=== PATIENT | male | born 1945 | race Caucasian/White ===

== ENCOUNTER → 2023-09-23 10:55 | Outpatient (REF) | payer MEDICARE, OTHER, SELFPAY | LOC: RCS 10:55 | PROVIDERS: ATTENDING PHYSICIAN Internal Medicine; FAMILY PHYSICIAN Internal Medicine | DX: I44.7 Left bundle-branch block, unspecified (principal); I44.0 Atrioventricular block, first degree | CPT/HCPCS: 93225; 93226 ==

== ENCOUNTER → 2023-12-08 12:54 | Outpatient (REF) | payer MEDICARE, OTHER, SELFPAY | LOC: RAD 12:54 | PROVIDERS: ATTENDING PHYSICIAN Internal Medicine | DX: R07.9 Chest pain, unspecified (principal); R10.9 Unspecified abdominal pain | CPT/HCPCS: 71046; 72072; 72110 ==

== ENCOUNTER → 2024-03-08 11:29 | Outpatient (REF) | payer MEDICARE, OTHER, SELFPAY ==
[2024-03-08 12:43] LABS: % Basophils 1.1 % (0-2); % Eosinophils 4.5 % (0-6); % Immature Granulocytes 0.5 % (0-0.5); % Lymphocytes 26.8 % (20.5-51.1); % Monocytes 7.1 % (1.7-9.3); Absolute Basophils 0.1 10^3/uL (0-0.2); Absolute Eosinophils 0.4 10^3/uL (0-0.7); Absolute Lymphocytes 2.2 10^3/uL (1.2-3.4); Absolute Monocytes 0.6 10^3/uL (0.1-0.6); Mean Corp Hgb Conc. 34.9 g/dL (33.0-37.0); Mean Corpuscular Hgb 31.3 pg (27.0-31.0); Mean Corpuscular Volume 89.8 fL (80.0-94.0); Mean Platelet Volume 9.5 fL (7.4-10.4); Nucleated Red Blood Cells % 0 % (-); Platelet Count 207 10^3/uL (130-400); Red Blood Cell Count 4.79 10^6/uL (4.70-6.10); Red Cell Dist. Width 13.7 % (11.5-14.5); White Blood Cell Count 8.3 10^3/uL (4.8-10.8)
[2024-03-08 13:13] LABS: ALT (SGPT) 27 U/L (0-50); AST (SGOT) 29 U/L (17-59); Albumin 4.7 g/dl (3.5-5.0); Alkaline Phosphatase 74 U/L (38-126); Blood Urea Nitrogen 19 mg/dl (9-20); Calcium 10.1 mg/dl (8.4-10.2); Carbon Dioxide 27 mmol/L (22-30); Chloride 103 mmol/L (98-107); Glucose 90 mg/dl (70-99); HDL Cholesterol 47 mg/dl; LDL Cholesterol, Calculated 88 mg/dl; Sodium 138 mmol/L (135-145); Total Bilirubin 0.6 mg/dl (0.2-1.3); Total Cholesterol 184 mg/dl (50-199); Triglyceride 246 mg/dl (10-149); Very Low Density Lipoprotein 49 mg/dl (0-30); eGFR > 60.00
[2024-03-08 13:36] LABS: Urine Albumin Negative (Neg - Trace); Urine Bilirubin Negative (Negative); Urine Character Clear (Clear); Urine Color Yellow; Urine Glucose Negative (Negative); Urine Ketone Negative (Negative); Urine Leukocyte Negative (Negative); Urine Nitrite Negative (Negative); Urine Occult Blood Negative (Negative); Urine Urobilinogen Negative (Neg - 1+)
== END ==
LOC: REG 11:29
PROVIDERS: ATTENDING PHYSICIAN Internal Medicine; OTHER PHYSICIAN Specialist; REFERRING PHYSICIAN Surgery
DX: I10 Essential (primary) hypertension (principal); E78.5 Hyperlipidemia, unspecified
CPT/HCPCS: 36415; 80053; 80061; 81003; 85025

== ENCOUNTER → 2024-03-22 12:56 | Outpatient (REF) | payer MEDICARE, OTHER, SELFPAY | LOC: RAD 12:56 | PROVIDERS: ATTENDING PHYSICIAN Surgery; FAMILY PHYSICIAN Internal Medicine; REFERRING PHYSICIAN Internal Medicine Critical Care Medicine | DX: R91.1 Solitary pulmonary nodule (principal); D30.01 Benign neoplasm of right kidney | CPT/HCPCS: 71250; 76775 ==

== ENCOUNTER 2024-04-24 09:14 | Outpatient (REF) | payer MEDICARE, OTHER, SELFPAY ==
[2024-04-24] VITALS (8 sets, daily range): BP systolic 48–175; BP diastolic 64–90
[2024-04-24 10:02] LABS: % Basophils 0.9 % (0-2); % Eosinophils 3.3 % (0-6); % Immature Granulocytes 0.3 % (0-0.5); % Lymphocytes 18.7 % (20.5-51.1); % Monocytes 6.7 % (1.7-9.3); % Neutrophils 70.1 % (42.2-75.2); Absolute Basophils 0.1 10^3/uL (0-0.2); Absolute Eosinophils 0.3 10^3/uL (0-0.7); Absolute Lymphocytes 1.7 10^3/uL (1.2-3.4); Absolute Monocytes 0.6 10^3/uL (0.1-0.6); Absolute Neutrophils 6.4 10^3/uL (1.4-6.5); Hematocrit 41.8 % (39.0-52.0); Mean Corp Hgb Conc. 35.9 g/dL (33.0-37.0); Mean Corpuscular Hgb 32.2 pg (27.0-31.0); Mean Corpuscular Volume 89.7 fL (80.0-94.0); Mean Platelet Volume 10.2 fL (7.4-10.4); Nucleated Red Blood Cells % 0 % (-); Platelet Count 252 10^3/uL (130-400); Red Blood Cell Count 4.66 10^6/uL (4.70-6.10); Red Cell Dist. Width 14.2 % (11.5-14.5); White Blood Cell Count 9.2 10^3/uL (4.8-10.8)
[2024-04-24 10:45] LABS: INR 1.01; PT 13.1 Sec (11.4-14.6)
== END 2024-04-24 14:20 | disposition home or self-care (01) ==
LOC: RADI 09:14
PROVIDERS: ATTENDING PHYSICIAN Internal Medicine Critical Care Medicine; FAMILY PHYSICIAN Internal Medicine
DX: C34.2 Malignant neoplasm of middle lobe, bronchus or lung (principal); Z87.891 Personal history of nicotine dependence; Z79.01 Long term (current) use of anticoagulants
CPT/HCPCS: 88305; 32408; 36415; 71045; 81459; 85025; 85610; 88333; 88341; 88342; 99152; 99153

== ENCOUNTER 2024-05-30 05:09 | Inpatient (IN) | payer MEDICARE, OTHER, SELFPAY ==
[2024-05-22 13:18] LABS: % Basophils 0.5 % (0-2); % Eosinophils 3.1 % (0-6); % Immature Granulocytes 0.3 % (0-0.5); % Lymphocytes 18.7 % (20.5-51.1); % Monocytes 5.5 % (1.7-9.3); % Neutrophils 71.9 % (42.2-75.2); Absolute Basophils 0.1 10^3/uL (0-0.2); Absolute Eosinophils 0.3 10^3/uL (0-0.7); Absolute Lymphocytes 1.8 10^3/uL (1.2-3.4); Absolute Monocytes 0.5 10^3/uL (0.1-0.6); Absolute Neutrophils 6.9 10^3/uL (1.4-6.5); Hematocrit 40.6 % (39.0-52.0); Hemoglobin 14.2 g/dL (13.0-18.0); Mean Corpuscular Volume 88.6 fL (80.0-94.0); Mean Platelet Volume 9.4 fL (7.4-10.4); Nucleated Red Blood Cells % 0 % (-); Platelet Count 221 10^3/uL (130-400); Red Blood Cell Count 4.58 10^6/uL (4.70-6.10); Red Cell Dist. Width 13.7 % (11.5-14.5); Urine Albumin Trace (Neg - Trace); Urine Bilirubin Negative (Negative); Urine Character Clear (Clear); Urine Color Yellow; Urine Glucose Negative (Negative); Urine Ketone Negative (Negative); Urine Leukocyte Trace (Negative); Urine Nitrite Negative (Negative); Urine Occult Blood Negative (Negative); Urine Specific Gravity 1.015 (<1.030); Urine Urobilinogen Negative (Neg - 1+); White Blood Cell Count 9.6 10^3/uL (4.8-10.8)
[2024-05-22 13:27] LABS: INR 0.94; PT 12.3 Sec (11.4-14.6)
[2024-05-22 13:28] LABS: APTT 32.7 Sec (23.4-35.0)
[2024-05-22 13:31] LABS: ALT (SGPT) 24 U/L (0-50); AST (SGOT) 24 U/L (17-59); Albumin 4.4 g/dl (3.5-5.0); Alkaline Phosphatase 57 U/L (38-126); Blood Urea Nitrogen 21 mg/dl (9-20); Carbon Dioxide 25 mmol/L (22-30); Chloride 100 mmol/L (98-107); Direct Bilirubin 0.1 mg/dl (0.0-0.4); Glucose 114 mg/dl (70-99); Sodium 138 mmol/L (135-145); Total Bilirubin 0.4 mg/dl (0.2-1.3); Total Protein 6.8 g/dl (6.3-8.2); eGFR > 60.00
[2024-05-22 13:48] VITALS: BMI 30.3
--- NOTE | 2024-05-22 13:48 | CM ---
Chart reviewed. Met with the patient and his significant other in PAT. Patient is independent of ADLS, lives with significant other in a split level home, 0 BRANDI, 0 DME. Reviewed preoperative and postoperative instructions with restrictions.
Gave patient 2 soaps, along with showering instruction. Patient is agreeable to a home visit by CT Transitional RN. Plan is for the patient to return home with CT Transitional RN.
[2024-05-22 14:19] LABS: Urine Red Blood Cell 0-2 /HPF (0-2)
[2024-05-23 09:27] LABS: Glycohemoglobin (HgbA1c) 5.8 % (4.0-5.6)
[2024-05-30] VITALS (23 sets, daily range): BP systolic 134–178; BP diastolic 69–105; BMI 28.7
--- NOTE | 2024-05-30 06:07 | PTCARENOTE ---
Pt admitted to room 2260. Pt confirmed 2 CHG showers at home and NPO status since midnight. Pt changed in gown. Weight and VS obtained. Pt clipped and prepped then wiped with CHG wipes. Admission questions answered. Home medications completed. ABO
drawn and sent. Pt oriented to room. Questions encouraged and answered. IS ~2000. Family brought to bedside. Call saldivar within reach.
--- NOTE | 2024-05-30 06:30 | W.CVOR.SURPR ---
CVOR Surgeon Immed Pre Op
-
I have examined this patient prior to performance of the scheduled procedure.
The patient's condition is unchanged from the time of the dictated/written History and
Physical and the patient is able to undergo the scheduled procedure.
RATS RML + LN Dissection
--- NOTE | 2024-05-30 06:46 | PTCARENOTE ---
Pt took vitamin D3, vitamin B, and a multivitamin on 05/29. Pt also took fish oil supplement on 05/27. MORGAN pelaez.
[2024-05-30 07:29] LABS: Urine Albumin Negative (Neg - Trace); Urine Bilirubin Negative (Negative); Urine Character Clear (Clear); Urine Color Yellow; Urine Glucose Negative (Negative); Urine Ketone Negative (Negative); Urine Leukocyte Negative (Negative); Urine Nitrite Negative (Negative); Urine Occult Blood Negative (Negative); Urine Specific Gravity 1.015 (<1.030); Urine Urobilinogen Negative (Neg - 1+); Urine pH 6.5 (5.0-9.0)
--- NOTE | 2024-05-30 11:07 | W.PN.CT.SURG ---
CT Surgery Operative Note
-
THORACIC SURGERY OPERATIVE REPORT
Preoperative Diagnosis: Adenocarcinoma of the right middle lobe
Postoperative Diagnosis: Same
Procedure(s) Performed:
1. Robotic assisted thoracic surgery
2. Right middle lobectomy
3. Wedge resection of adherent right upper lobe
4. Radical lymph node dissection
5. Intercostal nerve block interspaces 4 through 8 with bupivicaine mixture
Date of Surgery: 05/30/24
Comorbidities:
1. Adenocarcinoma of the right middle lobe
2. Hyperlipidemia
3. Hypertension
4. Mild mitral valve insufficiency
5. Tobacco abuse, recently quit
6. Paroxysmal atrial fibrillation
7. Hiatal hernia
Attending Surgeon: Bharathi Irene MD, MS
Assistants: Bharathi Rooney PA-C (present and necessary to transport assistant, exchanging robotic instruments, retraction, suction, exposure, suture management, and wound closure under my direction)
Anesthesiology: Darrel Huertas MD and Jaren Swift CRNA
Scrub and Circulating RNs: Jamila Correa RN, Nicola Soliz RN
Anesthesia: Dual Lumen GETA
EBL: 100 cc
Products: None
Indication(s) for Procedures: This is a 78-year-old male who has a significant history for tobacco abuse and recently found to have a right lower lobe mass that has been slowly growing serial imaging studies. It also had some PET avidity on CT
imaging. He underwent a recent biopsy that came back positive for adenocarcinoma. Given the size of the mass and that his PET/CT was not concerning for mediastinal adenopathy or uptake, he was offered surgical resection in the form of a right
middle lobectomy plus lymph node sampling. His PFTs were acceptable for lobectomy.
Findings: Upon entry into his chest, his intrathoracic cavity was surveyed for any obvious metachronous disease. None was discovered. I was able to identify the right middle lobe lesion which was posterior towards the hilum and was found to be
adherent to the right upper lobe. The lung was mobilized accordingly and lymph nodes were harvested. He did have a paucity of lymph nodes. Given that the lesion was adherent to the lateral edge of the right upper lobe, I elected to perform a
wedge resection leaving the right upper lobe attached to the lesion as part of the right middle lobe specimen. At the conclusion the case he had a very minimal intermittent airleak with no significant loss of tidal volume.
Specimen(s):
Station 9, x 1 nodes
Station 11, x 2 nodes
Station 4, x 1 nodes
Station 2, x 1 nodes
Station 7, x 1 nodes
Right middle lobe
Wedge marked with blue ink of the Right upper lobe (left attached to the RML lesion)
Description of Procedure: The patient was taken to the operating room. Induction via general anesthesia with endotracheal intubation was performed and peripheral venous access and arterial monitoring were inserted. Their identity and procedure to be
performed were verified and they were positioned with the right side up on the operating table. The patient was then prepped and draped in a sterile fashion. A preoperative time-out was performed with all members of the team present. A Veress
needle was used to insufflate the chest after isolating the lung. An 8 mm port was placed in the midaxillary line at approximately the eighth intercostal space and confirmed to be intrathoracic without significant pulmonary injury. The chest was
surveyed for any evidence of metastatic disease. Patient tolerate insufflation without complication. 2 additional 12 mm trocars were placed on either side under camera guidance and a third 8 mm trocar was placed along the back. A 12 mm nurseryman assistant
port was placed in the 11th intercostal space above the insertion of the diaphragm. An intercostal nerve block was performed at intercostal spaces 4 through 8.
The thoracic cavity was inspected for evidence of metastatic disease. None was observed. We started with mobilization of the inferior pulmonary ligament. We worked our way clockwise dissecting out the hilum and harvest any lymph nodes identified.
The pulmonary arteries and veins leading to the right middle lobe were identified and skeletonized after dividing lung parenchyma at the fissures which were moderately developed. I isolated the pulmonary veins draining the right middle lobe and
divided them with a white load stapler. After developing the fissures, the pulmonary artery branch and bronchus leading to the RML were essentially skeletonized and the only remaining structures, a green load stapler was used to divided both of
these. The specimen was displaced toward the apex while a chest tube was inserted and placed laterally towards the apex. A X-large anchor bag was inserted through the airseal port and the specimen was extracted from the chest cavity. Coseal was
used to reinforce the staple lines and hilum. Fibrillar was inserted at each port site. After confirming hemostasis, the lung was fully inflated under visualization and all ports were removed. Incisions were closed in 3 layers including the
fascia, dermal, and epidermis. Additional local anesthesia was injected into all incision sites. The skin wound was cleansed and sealed with Dermabond glue.
All instrument, sponge, and needle counts were confirmed to be correct x 2 at the end of the operation. The patient was transferred to the cardiac intensive care unit extubated in critical but stable condition.
I, Dr. Bharathi Irene, was present, scrubbed for, and performed all critical elements of this procedure.
Bharathi Irene MD, MS
Cardiothoracic Surgeon
[facility]
This operative dictation was created using the [employer] dictation system. Please excuse any grammatical, typographical, or 'sound alike' errors
--- NOTE | 2024-05-30 11:19 | CM ---
Chart reviewed. Patient is in the OR today. Patient is independent of ADLS, lives with his significant other in a split level, 0 BRANDI, 0 DME. Plan is for the patient to return home with CT Transitional RN. CM to follow
[2024-05-30] MEDS: DILAUDID 0.25 MG IV (11:20)
--- NOTE | 2024-05-30 12:30 | PTCARENOTE ---
Received patient from PACU. Pt drowsy, but oriented x4. Pt rates right sided chest/back pain 3/10 stabbing. Denies nausea and shortness of breath. CURRIE with equal strength throughout. SB with 1st degree AVB on tele with rates in the 50s. Hypertensive
BP 171/84, CT PA aware. Bilateral radial and DP pulses palpable. No edema noted. POX 98% on 4L NC, titrated to 2L NC 94%. Left lung clear, right lung diminished throughout. IS completed 2000mL achieved. Nonproductive moist cough noted. Right pleural
chest tube to -20cm suction draining serosanguineous drainage. No air leaks, tidaling, crepitus noted. Abdomen soft, round, nontender. Hypoactive BS. Due to void post roca removal. Right lateral chest/back with 4 small incisions closed with skin
glue and approximated. Right radial heather intact with appropriate waveform. Left hand and forearm PIVs intact. See MAR for medication administration. See worklist for complete nursing assessment. Plan of care reviewed and patient in agreement.
[2024-05-30] MEDS: SENOKOT 8.6 MG PO (12:42)
[2024-05-30] MEDS: CRESTOR 20 MG PO (12:42)
[2024-05-30] MEDS: FEOSOL 325 MG PO (12:42)
[2024-05-30] MEDS: VITAMIN D3 (cholecalciferol) 25 MCG PO (12:42)
[2024-05-30] MEDS: NEURONTIN 100 MG PO ×3 (12:42→21:35)
[2024-05-30] MEDS: ANCEF 10 IV ×2 (12:42)
--- NOTE | 2024-05-30 12:47 | CON.INTV ---
Consultation
Consultation Request
Date/Time Consultation Requested: 05/30/2024
Date/Time Consultation Performed: 05/30/2024
Requesting Provider: Dr. Irene
Performing Provider: Dr. Jadiel Landa
Reason for Consultation: Status post robotic assisted right middle lobe lobectomy
Medical History
Past Medical History
Past Medical History: Other (See assessment and pln)
Past Surgical History: Other (See assessment and plan)
Social History
Tobacco: Smoker (60+ pack year history of smoking.)
Alcohol: None
Drug: None
Personal:
Living: With Family
Family History
Family History: Reviewed & Not Pertinent
Allergies / Home Medications
Allergies
Allergy/AdvReac Type Severity Reaction Status Date / Time
hydralazine Allergy Itching Verified 05/21/24 09:41
poison solis extract Allergy Itching Verified 05/21/24 10:22
Home Medications
�Medication �Instructions �Recorded �Confirmed �Last Taken �Type
diltiazem HCl 180 mg capsule,24 180 mg PO BID 04/20/24 05/30/24 05/29/24 08:00 History
hr,extended release
doxazosin 2 mg tablet 2 mg PO DAILY 04/20/24 05/30/24 05/29/24 08:00 History
multivitamin 1 tab PO DAILY 04/20/24 05/30/24 05/29/24 08:00 History
nebivolol 5 mg tablet 5 mg PO DAILY 04/20/24 05/30/24 05/29/24 20:00 History
rosuvastatin 20 mg tablet 20 mg PO DAILY 04/20/24 05/30/24 05/29/24 08:00 History
triamterene 37.5 1 cap PO DAILY 04/20/24 05/30/24 05/29/24 08:00 History
mg-hydrochlorothiazide 25 mg
capsule
aspirin 325 mg tablet 162 mg PO DAILY 05/21/24 05/30/24 05/27/24 History
cholecalciferol (vitamin D3) 25 25 mcg PO DAILY 05/21/24 05/30/24 05/28/24 20:00 History
mcg (1,000 unit) tablet (Vitamin
D3)
docosahexaenoic acid (dha)-epa 120 1 cap PO DAILY 05/21/24 05/30/24 05/27/24 History
mg-180 mg capsule (Fish Oil)
ferrous sulfate 325 mg (65 mg 325 mg PO DAILY 05/21/24 05/30/24 05/29/24 20:00 History
iron) tablet (Iron (ferrous
sulfate))
psyllium 500 mg capsule 0.52 g PO DAILY 05/21/24 05/30/24 05/29/24 08:00 History
tadalafil 5 mg tablet 1 mg PO DAILY 05/21/24 05/30/24 05/29/24 08:00 History
vitamin B complex 1 tab PO DAILY 05/21/24 05/30/24 05/29/24 08:00 History
zinc 100 mg tablet 150 mg PO QMWFSU 05/21/24 05/30/24 05/28/24 20:00 History
Review of Systems
-
History Source: Patient
All other systems: Negative unless noted
Vitals / Labs / Diagnostic Testing
Vital Signs
Temp Pulse Resp BP Pulse Ox
97.6 F 62 15 160/82 98
05/30/24 12:15 05/30/24 12:15 05/30/24 12:15 05/30/24 12:15 05/30/24 12:15
Lab Data
05/22/24 12:28
05/22/24 12:28
Diagnostic Testing:
Physical Exam
-
HEENT: Normocephalic
Cardiovascular: S1/S2
Respiratory: Non-Labored Respirations and Other (Chest tube in place without air leak)
GI: Soft and Non Distended
Neurology: Awake, Alert, Oriented and AO x 3
Skin: Warm
General: Comfortable
Assessment
-
Status post robotic assisted right middle lobectomy/wedge resection of adherent right upper lobe/radical lymph node dissection 05/30/2024
Adenocarcinoma right middle lobe percutaneous biopsy 04/24/2024
Conditions present prior admission:
Early stage adenocarcinoma 14 mm
Hypertension
Paroxysmal atrial fibrillation
Hiatal hernia
Hypercholesterolemia
Tobacco abuse-normal pulmonary function testing
Plan recommendation:
Doing well postoperative day 0
Chest x-ray without pneumothorax
Chest tube in place without air leak
Daily chest x-ray
-
Continue analgesia-monitor respiratory status closely.
Incentive spirometry as able
Follow final pathology of lymph node resection
-
Advance diet as tolerated
Follow H&H
Daily chest x-ray
-
Patient has history of smoking ongoing up until recently. Pulmonary function testing functional capacity was adequate. Not on inhalers.
-
Restart outpatient medications
Narcotics for pain-monitor respiratory status closely
-
DVT prophylaxis with SCDs for now. Eventual from ecological DVT prophylaxis depending on clinical progression.
-
Will follow
[2024-05-30] MEDS: ROXICODONE 2.5 MG PO (12:56)
[2024-05-30] MEDS: FLEXERIL 5 MG PO (12:56)
[2024-05-30] MEDS: ANCEF 5 IV ×2 (14:06→21:34)
[2024-05-30] MEDS: TYLENOL 1000 MG PO ×2 (14:06→21:34)
[2024-05-30] MEDS: HEPARIN 5000 UNITS SC ×2 (16:54→23:14)
--- NOTE | 2024-05-30 17:00 | PTCARENOTE ---
Pt reassessed. Pt a&ox4. Pt denies pain when not moving. SR with 1st degree AVB and LBBB with rates in the 60s. BP 172/89, CT PA aware. CT output WNL, to water seal, no air leak, tidaling, or crepitus. Pt voided 325ml zak urine. Surgical sites
stable. PIVx2 intact. Pt assisted OOB to the chair and tolerated. Pt's significant other at bedside.
[2024-05-30] MEDS: NICORETTE 2 MG PO (17:16)
[2024-05-30] MEDS: CARDIZEM CD 180 MG PO (18:03)
[2024-05-30] MEDS: SENOKOT PO (19:38)
--- NOTE | 2024-05-30 20:00 | PTCARENOTE ---
Received pt from [facility]. pt resting comfortably in chair, at bedside, pt AAOx4, pain 08/03. SB on monitor, VSS. heart sounds audible radial and DP pulses palpable, no edema noted. lung sounds diminished in b/l bases, spo2 96% on RA, x1 right
lateral pleural CT to water seal. hypoactive BS x4 quadrants, abdomen round/obese, firm, non tender, passing gas. pt voiding dark yellow urine. surgical site maintained. PIV maintained. pt assisted back to bed. call saldivar within reach. will continue
to monitor.
--- NOTE | 2024-05-31 | PTCARENOTE ---
pt assessment unchanged. VSS. SB on monitor. VSS. call saldivar within reach. will continue to monitor.
[2024-05-31 00:19] VITALS: BP 126/62
--- NOTE | 2024-05-31 04:00 | PTCARENOTE ---
Pt assessment unchanged. SB on monitor. VSS. labs drawn and sent.
[2024-05-31 04:10] VITALS: BP 99/69
[2024-05-31 04:16] LABS: Hematocrit 39.1 % (39.0-52.0); Hemoglobin 13.8 g/dL (13.0-18.0); Mean Corp Hgb Conc. 35.3 g/dL (33.0-37.0); Mean Corpuscular Hgb 32.6 pg (27.0-31.0); Mean Corpuscular Volume 92.4 fL (80.0-94.0); Mean Platelet Volume 9.1 fL (7.4-10.4); Platelet Count 194 10^3/uL (130-400); Red Blood Cell Count 4.23 10^6/uL (4.70-6.10); Red Cell Dist. Width 13.8 % (11.5-14.5); White Blood Cell Count 16.8 10^3/uL (4.8-10.8)
[2024-05-31 04:39] LABS: Blood Urea Nitrogen 24 mg/dl (9-20); Calcium 8.8 mg/dl (8.4-10.2); Carbon Dioxide 26 mmol/L (22-30); Chloride 100 mmol/L (98-107); Estimated Creatinine Clearance 53 ml/min; Glucose 132 mg/dl (70-99); Sodium 137 mmol/L (135-145); eGFR > 60.00
[2024-05-31] MEDS: ANCEF 5 IV (05:59)
[2024-05-31] MEDS: TYLENOL 1000 MG PO (05:59)
[2024-05-31 06:00] VITALS: BMI 29.4
--- NOTE | 2024-05-31 06:51 | W.PN.CT ---
Today's Communication / Plan
-
-pod #1
-no issues overnight
-postop CXR with questionable tiny pneumothorax at the lower right lateral chest margin. No apical pneumothorax- follow
-R CT on water seal, no air leak, output 30/115 in 12/24 hrs
-follow CXR (no ptx or subq emphysema on my review)
Assessment / Plan
-
- Adenocarcinoma of the right middle lobe- s/p RATS with R middle lobectomy, Wedge resection of adherent right upper lobe, Radical lymph node dissection by Dr. Irene on 05/30/24, pod #1
- Hyperlipidemia
- Hypertension
- Mild mitral valve insufficiency
- Tobacco abuse, recently quit
- Paroxysmal atrial fibrillation
- Hiatal hernia
Discussed patient care with: Nursing and Care Team
Subjective
-
Date of Service: May 31, 2024
Objective Data
-
PT 12.3 Sec (11.4-14.6) 05/22/24 12:28
INR 0.94 05/22/24 12:28
APTT 32.7 Sec (23.4-35.0) 05/22/24 12:28
Vital Signs
Vital Signs
Temp Pulse Resp BP Pulse Ox
97.9 F 56 15 126/62 94
05/31/24 00:00 05/31/24 00:19 05/30/24 17:01 05/31/24 00:19 05/31/24 00:19
CT Intake/Output/Weight
05/30/24 05/30/24 05/31/24
06:59 18:59 06:59
Intake Total 270 / 270
Output Total 410 / 420 10 / 420
Balance -140 / -150 -10 / -150
SaO2: 94
Physical Exam
-
General: Awake and AOx3
Cardiovascular: Regular rate & rhythm, No Murmurs and No Rub
Respiratory: Rales (at R. No wheeze b/l. No crepitus) and Decreased Breath Sounds
Incision: Clean, Dry and Intact
Extremities: No Edema
Data Reviewed
-
Lab Results: Results Reviewed
Medications: Active Meds Reviewed
Chest X-Ray: Report Reviewed and Image Reviewed
ECG: Report Reviewed and Image Reviewed
--- NOTE | 2024-05-31 07:00 | PTCARENOTE ---
Bedside walking rounds report received. Patient seen on rounds resting in chair on room air. NSR with BBB PAC PVC on monitor. Oriented x 3. Denies significant pain at this time. CT surgical rounds: New orders. PA will dc right pleural chest tube.
CXR at 12pm. Then dc home this afternoon if stable. IS encouraged hourly.
[2024-05-31 07:48] VITALS: BP 130/61
[2024-05-31 07:49] VITALS: BP 130/61
--- NOTE | 2024-05-31 07:53 | W.PN.ANS.POP ---
Anesthesia Post Operative
- Anesthesia Post Op Note
Vital Signs Stable-See Nursing Note: Yes
Airway Patent: Yes
Adequate Pain Control: Yes
Change in Mental Status: No
Current Postoperative Nausea & Vomiting: No
Anesthesia Complications: No
General Anesthetic Recall: No
Unplanned Admission: No
Post Op Hydration Adequate: Yes
- -
Pt awake and alert, OOB to chair with no anesthesia related c/o at time of post op visit.
[2024-05-31] MEDS: SENOKOT 8.6 MG PO (08:59)
[2024-05-31] MEDS: LIDOCAINE 4% PATCH 1 PATCH TOPICAL (09:00)
[2024-05-31] MEDS: HEPARIN 5000 UNITS SC (09:00)
[2024-05-31] MEDS: CRESTOR 20 MG PO (09:02)
[2024-05-31] MEDS: NEURONTIN 100 MG PO (09:03)
[2024-05-31] MEDS: DYAZIDE 1 CAPSULE PO (09:03)
[2024-05-31] MEDS: CARDIZEM CD 180 MG PO (09:04)
[2024-05-31] MEDS: FEOSOL 325 MG PO (09:04)
[2024-05-31] MEDS: VITAMIN D3 (cholecalciferol) 25 MCG PO (09:04)
--- NOTE | 2024-05-31 09:06 | W.DCSUMMARY ---
Discharge Summary
Discharge Data
Date of Admission: 05/30/24
Date of Discharge: 05/31/24
-
Pending Results: No
Hospital Course
Primary care physician:
Kyler
Outpatient bellman driver:
Maritza
Inpatient consultants:
Pulmonary
Procedures:
1. Right middle lobectomy and Wedge resection of adherent right upper lobe
Primary Diagnosis:
1. Adenocarcinoma of the right middle lobe
Secondary Diagnoses:
1. Hyperlipidemia
2. Hypertension
3. Mild mitral valve insufficiency
4. Tobacco abuse, recently quit
5. Paroxysmal atrial fibrillation
6. Hiatal hernia
HPI: 78-year-old male who has a significant history for tobacco abuse and recently found to have a right lower lobe mass that has been slowly growing serial imaging studies was evaluated for surgical intervention and he presented electively on 05/[address] Irene.
Hospital course:
Patient postprocedure was extubated in the OR and sent to PACU for the remainder of his recovery. Afterwards he was transferred to the CVICU. There was a small airleak postprocedure which resolved and later was transition to waterseal. On 05/31
postoperative day 1, morning chest x-ray did not show a pneumothorax and physical examination did not show an air leak in the Pleur-evac. Therefore the chest tube was removed and post removal chest x-ray was stable. He was discharged home with his
prescriptions.
Home medication changes:
See below
Discharge Plan
-
Patient Disposition: Home (Routine Discharge)
Discharge Diagnosis/Procedures: Right middle lobectomy and Wedge resection of adherent right upper lobe
Condition: Good
Diet: Low Cholesterol
Activity: No strenuous activity
Driving Restrictions: No driving for 2 weeks
Bathing Restrictions: OK to Shower
Others Tests: CXR prior to office visit with Dr. Irene
Activity Restrictions/Additional Instructions:
ACTIVITY:
-No strenuous activity
-continue to use stairs as tolerated
DRIVING RESTRICTIONS:
-No driving while on narcotics
WOUND CARE:
-Shower daily. Use soap & water.
-No lotions, creams or powders on incision area.
DIET:
-continue a low fat/low cholesterol diet.
-IF you are diabetic, continue carb controlled diet.
SPECIALTY INSTRUCTIONS:
-Weigh yourself daily. Call your physician for any weight gain/loss of 3 lbs overnight or 5 lbs in one week.
-REPORT any clicking noise or uneven appearance of your sternum to your surgeon immediately.
-If you smoke, you are instructed to quit. The [place] smoking hotline phone number is [phone]
Referrals:
CT Transitional Care Nurse [Outside] (The Cardiothoracic Transitional Care Nurse will call you to set up a visit in 1-2 days.)
Bharathi Irene MD [Active] - 07/04/24 1:45 pm
Solomon Chávez MD [Family Provider] -
Prescriptions:
New
cyclobenzaprine 10 mg Tablet
5 mg PO Q8HPRN PRN (Reason: muscle spasm) Qty: 30 0RF
acetaminophen 325 mg Tablet
650 mg PO Q4HPRN PRN (Reason: mild pain,headache,temp >101F ) Qty: 0 0RF
gabapentin 100 mg Capsule
100 mg PO TID Qty: 60 0RF
oxycodone 5 mg Tablet
2.5 mg PO Q8HPRN PRN (Reason: severe pain) Qty: 8 0RF
Continued
multivitamin Tablet
1 tab PO DAILY
diltiazem HCl 180 mg Capsule,Extended Release 24 Hr
180 mg PO BID
triamterene-hydrochlorothiazid 37.5-25 mg Capsule
1 cap PO DAILY
doxazosin 2 mg Tablet
2 mg PO DAILY
rosuvastatin 20 mg Tablet
20 mg PO DAILY
nebivolol 5 mg Tablet
5 mg PO HS
aspirin 325 mg Tablet
162 mg PO DAILY
tadalafil 5 mg Tablet
1 mg PO DAILY
zinc 100 mg Tablet
150 mg PO QMWFSU
psyllium 500 mg Capsule
0.52 g PO DAILY
ferrous sulfate [Iron (ferrous sulfate)] 325 mg (65 mg iron) Tablet
325 mg PO DAILY
vitamin B complex Tablet
1 tab PO DAILY
cholecalciferol (vitamin D3) [Vitamin D3] 25 mcg (1,000 unit) Tablet
25 mcg PO DAILY
Held
Fish Oil 120-180 mg Capsule
1 cap PO DAILY
Hold Instructions: Resume on 06/07/24.
Discharge Orders:
Discharge Patient (As Directed); Ordered 05/31/24
Ordered By: Jamila Mortensen
Care Plan Goals
Care Plan Goals:
Problem: Readiness for enhanced knowledge related to diagnosis and treatment plan
Goal: Understand your diagnosis and treatment plan needs, including medications if applicable.
Instructions: Know your diagnosis, underlying causes and treatment plan options, including medications if applicable. Consult with your health care team to learn about your diagnosis and treatment plan, including medications if applicable.
Discharge Date and Time
Print Language: [place]
--- NOTE | 2024-05-31 11:12 | CM ---
Chart reviewed. Patient is independent of ADLS, lives with his significant other in a split level house, 0 BRANDI, 0 DME. Plan is for the patient to return home with CT Transitional RN. CM to follow
--- NOTE | 2024-05-31 12:00 | PTCARENOTE ---
No acute changes. Clear for dc home per ct surgery.
--- NOTE | 2024-05-31 12:15 | W.[place]-PDMP ---
[place]-PDMP
-
Checked the [place]- Prescription Drug Monitoring Program website, no red flags identified; safe to proceed with prescription.
[2024-05-31 12:50] VITALS: BP 144/63
[2024-05-31 12:51] VITALS: BP 144/63
[2024-05-31] MEDS: TYLENOL PO (12:56)
--- NOTE | 2024-05-31 13:30 | PTCARENOTE ---
Patient instructed on care of right pleural chest tube dressing: PA aware that there are sutures remaining. Visiting RN will be coming out to patients house to assess sutures clip them when ready. Patient verbalized understanding
== END 2024-05-31 16:21 | disposition home or self-care (01) | DRG 164 ==
LOC: CVICU 05:09
PROVIDERS: Physician Assistant Medical; ADMITTING PHYSICIAN Thoracic Surgery (Cardiothoracic Vascular Surgery); FAMILY PHYSICIAN Internal Medicine; OTHER PHYSICIAN Internal Medicine Critical Care Medicine
PROC: 0BBC4ZZ Excision of Right Upper Lung Lobe, Percutaneous Endoscopic Approach (ICD-10-PCS; 2024-05-30)
PROC: 8E0W4CZ Robotic Assisted Procedure of Trunk Region, Percutaneous Endoscopic Approach (ICD-10-PCS; 2024-05-30)
PROC: 0BTD4ZZ Resection of Right Middle Lung Lobe, Percutaneous Endoscopic Approach (ICD-10-PCS; 2024-05-30)
PROC: 07B74ZX Excision of Thorax Lymphatic, Percutaneous Endoscopic Approach, Diagnostic (ICD-10-PCS; 2024-05-30)
DX: C34.2 Malignant neoplasm of middle lobe, bronchus or lung (principal); J95.812 Postprocedural air leak; E78.00 Pure hypercholesterolemia, unspecified; I10 Essential (primary) hypertension; I48.0 Paroxysmal atrial fibrillation; K44.9 Diaphragmatic hernia without obstruction or gangrene; I34.0 Nonrheumatic mitral (valve) insufficiency; Y83.8 Other surgical procedures as the cause of abnormal reaction of the patient, or of later complication, without mention of misadventure at the time of the procedure; Z87.891 Personal history of nicotine dependence; Z79.82 Long term (current) use of aspirin
CPT/HCPCS: 88305; 88309; 94727; 94729; 32505; 36415; 71045; 80048; 80053; 81003; 81015; 82248; 83036; 83735; 85025; 85027; 85610; 85730; 86850; 86900; 86901; 87070; 88313; 88342; 93005; 93880; 94010

== ENCOUNTER → 2024-06-18 14:06 | Outpatient (REF) | payer MEDICARE, OTHER, SELFPAY | LOC: HWRAD 14:06 | PROVIDERS: ATTENDING PHYSICIAN Internal Medicine Hematology & Oncology; FAMILY PHYSICIAN Internal Medicine; OTHER PHYSICIAN Thoracic Surgery (Cardiothoracic Vascular Surgery); REFERRING PHYSICIAN Internal Medicine Critical Care Medicine | DX: C34.2 Malignant neoplasm of middle lobe, bronchus or lung (principal); N28.1 Cyst of kidney, acquired | CPT/HCPCS: 74160; Q9967 ==

== ENCOUNTER → 2024-06-22 14:54 | Outpatient (REF) | payer MEDICARE, OTHER, SELFPAY ==
[2024-06-22 17:41] LABS: % Basophils 0.9 % (0-2); % Eosinophils 5.9 % (0-6); % Immature Granulocytes 0.3 % (0-0.5); % Lymphocytes 18.5 % (20.5-51.1); % Monocytes 6.1 % (1.7-9.3); % Neutrophils 68.3 % (42.2-75.2); Absolute Basophils 0.1 10^3/uL (0-0.2); Absolute Eosinophils 0.5 10^3/uL (0-0.7); Absolute Lymphocytes 1.7 10^3/uL (1.2-3.4); Absolute Monocytes 0.6 10^3/uL (0.1-0.6); Absolute Neutrophils 6.3 10^3/uL (1.4-6.5); Hematocrit 43.7 % (39.0-52.0); Hemoglobin 14.8 g/dL (13.0-18.0); Mean Corp Hgb Conc. 33.9 g/dL (33.0-37.0); Mean Corpuscular Hgb 31.8 pg (27.0-31.0); Mean Corpuscular Volume 93.8 fL (80.0-94.0); Mean Platelet Volume 9.4 fL (7.4-10.4); Nucleated Red Blood Cells % 0 % (-); Platelet Count 229 10^3/uL (130-400); Red Blood Cell Count 4.66 10^6/uL (4.70-6.10); Red Cell Dist. Width 13.6 % (11.5-14.5); White Blood Cell Count 9.2 10^3/uL (4.8-10.8)
[2024-06-22 17:54] LABS: Blood Urea Nitrogen 21 mg/dl (9-20); Calcium 9.7 mg/dl (8.4-10.2); Carbon Dioxide 28 mmol/L (22-30); Chloride 96 mmol/L (98-107); Glucose 111 mg/dl (70-99); Potassium 3.7 mmol/L (3.5-5.1); Sodium 137 mmol/L (135-145); eGFR > 60.00
== END ==
LOC: REG 14:54
PROVIDERS: ATTENDING PHYSICIAN Internal Medicine Hematology & Oncology
DX: C34.2 Malignant neoplasm of middle lobe, bronchus or lung (principal)
CPT/HCPCS: 36415; 80048; 85025

== ENCOUNTER 2024-06-29 15:07 | Emergency (ER) | payer MEDICARE, OTHER, SELFPAY ==
--- NOTE | 2024-06-29 15:14 | ED.SKININJ ---
HPI-Injury
<Noemi Doe [employer] - Last Filed: 06/29/24 15:21>
General
Chief Complaint: Fatigue
Time Seen by Provider: 06/29/24 19:41
<Songwalter Edward DO Estefany - Last Filed: 06/29/24 22:05>
History of Present Illness-Injury
Is pt an associate of [facility]?: No
Initial Injury comments:
TIME OF INITIAL ENCOUNTER: 7:45 PM
HPI: The patient presents due to chills and generalized fatigue. He has not had any definite fevers. He had a right middle lobectomy [address] Irene[address] He has no trouble breathing. He states he did have some postoperative atelectasis
based on CT last month. He states he was up urinating 6-7 times last night. He states that Dr. Irene's office told him to go to either urgent care or to the Emergency Department.
EXAM:
GENERAL: Well appearing in no distress
HEENT: Moist oral mucosa
CARDIOVASCULAR: No murmurs, normal heart rate, regular rhythm, No chest wall tenderness
PULMONARY: No respiratory distress, breath sounds are clear and equal
ABDOMEN: Soft with no peritoneal signs, no tenderness
NEUROLOGIC: Excellent strength all extremities, no coordination deficits
PSYCHIATRIC: Appropriate mental status, normal insight and judgement
EXTREMITIES: Nontender, no edema, moves all extremities equally
SKIN: No rash, no lesions
NUMBER AND COMPLEXITY OF PROBLEMS ADDRESSED AT THE ENCOUNTER
� Chronic conditions affecting care: Adenocarcinoma of the right middle lobe, paroxysmal A-fib, high blood pressure, diverticular disease
� Acute Exacerbation and/or Progression of Chronic Illness: This is an acute problem
� Differential Diagnosis includes: Viral syndrome, pneumonia, atelectasis, UTI,
AMOUNT AND/OR COMPLEXITY OF DATA TO BE REVIEWED AND ANALYZED
� I performed an independent evaluation of and my interpretation is:
EKG:
CT:
X-rays: I personally reviewed chest x-ray and see no clear acute abnormality and agree with radiologist interpretation
Laboratory Studies: White count is 8.8, hemoglobin 15.1, creatinine is 1.4, bicarb 31
Other:
� Review of other/old records: I reviewed records. I reviewed Dr. Irene's note from last month�patient had robotic assisted thoracic surgery with right middle lobectomy and wedge resection of adherent right upper lobe along with
a radical lymph node dissection
� Clinical information was obtained by an independent historian: I spoke to the at bedside
� Prescriptions/Medications Considered but not given: Offered and considered IV fluids however the patient states that he wants to just try drinking water orally.
� Further testing considered but not performed:
RISK OF COMPLICATIONS AND/OR MORBIDITY OR MORTALITY OF PATIENT MANAGEMENT
� Social determinants of health affecting care: Lives at home
� Discussion with other providers: Notified Dr. Irene of patient's presentation
� Escalation of care including admission/observation vs risk of discharge considered: Although blood pressure initially was noted to be low, without intervention, repeat blood pressure was 149/73 and his heart rate was never
elevated. He is afebrile. He has excellent mental status
ANY OTHER UPDATES:
10 PM: Suspect more of a viral syndrome as workup is unremarkable.
ED Provider Triage
<Noemi Doe NP - Last Filed: 06/29/24 15:21>
-
Patient seen by provider in Triage?: Seen in Triage
Attestation: A medical screening examination has been initiated by a qualified medical provider. Based on the assessment performed at this time, it has been determined that an emergent medical condition may exist and the patient has been informed
that further medical evaluation and possible additional diagnostic testing may be needed.
HPI: 78 yo male hx right mid and upper lung resection for CA /. Saw Dr. Jorge 3 days ago and 'all clear.'
7 days ago fatigued, chilled, denies cough, SOB, CP. Denies f/has felt chilled. One time when he took a deep breath this a.m. he felt a pain in the right upper chest that was fleeting, none since. Last night urinated 7-8 times every hour.
Presents after Dr. Irene office notified and recommended coming here since had lung resection.
Hx afib, HTN, HLD.
No sick contacts.
GENERAL: Alert , in no apparent distress
EYE: No visual abnormalities.
NECK: Trachea midline
ENT: No visible abnormalities.
LUNGS: No acute respiratory distress
NEUROLOGICAL: Alert and oriented
SKIN: Skin intact. No visible changes.
MUSCULOSKELETAL: Moving extremities normally
PSYCH: Normal and appropriate interaction.
This is a medical evaluation conducted in person to initiate diagnostic evaluation and provide initial therapeutics. Please see further documentation by the treating clinician.
Past History
<Noemi Doe [employer] - Last Filed: 06/29/24 15:21>
Past History
ED Past Medical History: Arrthythmia (Atrial fibrillation), HTN and Hypercholesterolemia
Social History
Tobacco: Smoker
Alcohol: Occasional
Drug: None
Personal:
Living: with family
Employment: Retired
Family History
Family History: Other (Noncontributory)
Phy Exam
<Song Allison DO - Last Filed: 06/29/24 22:05>
Physical Exam
Physical Exam:
See HPI
Course
<Noemi Doe, [employer] - Last Filed: 06/29/24 15:21>
Orders/Labs/Results
Orders:
Orders
06/29/24 15:19
CR Chest - 2 Views Urgent
Comment:
Reason For Exam: chest pain, recent lung resection
06/29/24 15:33
Complete Blood Count/With Diff Urgent
Comprehensive Metabolic Panel Urgent
06/29/24 19:36
Electrocardiogram (*1) Urgent
Reason for Study: Shortness of Breath
EKG- Treatment ONCE
06/29/24 20:25
Urinalysis Reflex To Culture Urgent
Date Specimen was Collected: 06/29/24
Time Specimen was Collected: 20:03
Abnormal Lab Results
06/29/24
15:33
MCH 31.4 H pg
(27.0-31.0)
Abs Immat Gran (auto) 0.1 H 10^3/uL
(0-0.05)
Absolute Neuts (auto) 7.5 H 10^3/uL
(1.4-6.5)
Absolute Lymphs (auto) 0.7 L 10^3/uL
(1.2-3.4)
Immature Gran % 0.6 H %
(0-0.5)
Neutrophils % 84.3 H %
(42.2-75.2)
Lymphocytes % 7.9 L %
(20.5-51.1)
Chloride 95 L mmol/L
(98-107)
Carbon Dioxide 31 H mmol/L
(22-30)
Creatinine 1.4 H mg/dL
(0.7-1.3)
Glucose 114 H mg/dl
(70-99)
06/29/24 15:33
06/29/24 15:33
Vital Signs
Initial and Last Documented VS:
Initial Vital Signs
Temp Pulse Resp BP Pulse Ox
36.9 C 80 16 92/69 97
06/29/24 15:17 06/29/24 15:17 06/29/24 15:17 06/29/24 15:17 06/29/24 15:17
Last Documented Vital Signs
Temp Pulse Resp BP Pulse Ox
37.4 C 71 10 155/73 94
06/29/24 21:32 06/29/24 20:45 06/29/24 20:45 06/29/24 20:24 06/29/24 20:45
<Song Allison, DO - Last Filed: 06/29/24 22:05>
Orders/Labs/Results
Orders:
Orders
06/29/24 15:19
CR Chest - 2 Views Urgent
Comment:
Reason For Exam: chest pain, recent lung resection
06/29/24 15:33
Complete Blood Count/With Diff Urgent
Comprehensive Metabolic Panel Urgent
06/29/24 19:36
Electrocardiogram (*1) Urgent
Reason for Study: Shortness of Breath
EKG- Treatment ONCE
06/29/24 20:25
Urinalysis Reflex To Culture Urgent
Date Specimen was Collected: 06/29/24
Time Specimen was Collected: 20:03
Abnormal Lab Results
06/29/24
15:33
MCH 31.4 H pg
(27.0-31.0)
Abs Immat Gran (auto) 0.1 H 10^3/uL
(0-0.05)
Absolute Neuts (auto) 7.5 H 10^3/uL
(1.4-6.5)
Absolute Lymphs (auto) 0.7 L 10^3/uL
(1.2-3.4)
Immature Gran % 0.6 H %
(0-0.5)
Neutrophils % 84.3 H %
(42.2-75.2)
Lymphocytes % 7.9 L %
(20.5-51.1)
Chloride 95 L mmol/L
(98-107)
Carbon Dioxide 31 H mmol/L
(22-30)
Creatinine 1.4 H mg/dL
(0.7-1.3)
Glucose 114 H mg/dl
(70-99)
06/29/24 15:33
06/29/24 15:33
Vital Signs
Initial and Last Documented VS:
Initial Vital Signs
Temp Pulse Resp BP Pulse Ox
36.9 C 80 16 92/69 97
06/29/24 15:17 06/29/24 15:17 06/29/24 15:17 06/29/24 15:17 06/29/24 15:17
Last Documented Vital Signs
Temp Pulse Resp BP Pulse Ox
37.4 C 71 10 155/73 94
06/29/24 21:32 06/29/24 20:45 06/29/24 20:45 06/29/24 20:24 06/29/24 20:45
<Song Allison DO - Last Filed: 06/29/24 22:05>
*Critical Care Note
Total Time (30-74mins, 75-104mins- exclusive of procedures): Not Applicable
ED Attending Note
<Noemi Doe, [employer] - Last Filed: 06/29/24 15:21>
-
Portions of this chart may have been created with voice recognition software.� Occasional wrong word or��sound alike� substitutions may have occurred due to the inherent limitations of voice recognition software.
Discharge Plan
Departure
Patient Disposition: Home (Routine Discharge)
Date of Disposition: 06/29/24
Time of Disposition: 21:44
Patient with high blood pressure during this ER visit?: Yes
Discharge Problem:
Acute viral syndrome
Prescriptions:
No Action
multivitamin Tablet
1 tab PO DAILY
diltiazem HCl 180 mg Capsule,Extended Release 24 Hr
180 mg PO BID
triamterene-hydrochlorothiazid 37.5-25 mg Capsule
1 cap PO DAILY
doxazosin 2 mg Tablet
2 mg PO DAILY
rosuvastatin 20 mg Tablet
20 mg PO DAILY
nebivolol 5 mg Tablet
5 mg PO HS
aspirin 325 mg Tablet
162 mg PO DAILY
tadalafil 5 mg Tablet
5 mg PO DAILY
zinc 100 mg Tablet
150 mg PO QMWFSU
psyllium 500 mg Capsule
0.52 g PO DAILY
ferrous sulfate [Iron (ferrous sulfate)] 325 mg (65 mg iron) Tablet
325 mg PO DAILY
vitamin B complex Tablet
1 tab PO DAILY
Fish Oil 120-180 mg Capsule
1 cap PO DAILY
cholecalciferol (vitamin D3) [Vitamin D3] 25 mcg (1,000 unit) Tablet
25 mcg PO DAILY
cyclobenzaprine 10 mg Tablet
5 mg PO Q8HPRN PRN (Reason: muscle spasm) Qty: 30 0RF
acetaminophen 325 mg Tablet
650 mg PO Q4HPRN PRN (Reason: mild pain,headache,temp >101F ) Qty: 0 0RF
gabapentin 100 mg Capsule
100 mg PO TID Qty: 60 0RF
oxycodone 5 mg Tablet
2.5 mg PO Q8HPRN PRN (Reason: severe pain) Qty: 8 0RF
Referrals:
Solomon hCávez MD [Family Provider] -
Activity Restrictions/Additional Instructions:
The cause of your symptoms is unclear but could be related to a viral syndrome. Basic blood work is normal with exception of very mild renal insufficiency. Urinalysis shows no sign of infection. I shared the chest x-ray tonight with Dr. Irene.
Return if worse or other concerns
Discharge Date and Time
Print Language: GEORGIAN
[2024-06-29 15:17] VITALS: BP 92/69
[2024-06-29 15:55] LABS: ALT (SGPT) 27 U/L (0-50); AST (SGOT) 28 U/L (17-59); Albumin 4.6 g/dl (3.5-5.0); Alkaline Phosphatase 79 U/L (38-126); Blood Urea Nitrogen 18 mg/dl (9-20); Carbon Dioxide 31 mmol/L (22-30); Chloride 95 mmol/L (98-107); Glucose 114 mg/dl (70-99); Potassium 4.5 mmol/L (3.5-5.1); Sodium 136 mmol/L (135-145); Total Bilirubin 0.4 mg/dl (0.2-1.3); Total Protein 7.4 g/dl (6.3-8.2); eGFR 51.77
[2024-06-29 16:31] LABS: % Basophils 0.7 % (0-2); % Eosinophils 0.5 % (0-6); % Immature Granulocytes 0.6 % (0-0.5); % Lymphocytes 7.9 % (20.5-51.1); % Neutrophils 84.3 % (42.2-75.2); Absolute Basophils 0.1 10^3/uL (0-0.2); Absolute Immature Granulocytes 0.1 10^3/uL (0-0.05); Absolute Lymphocytes 0.7 10^3/uL (1.2-3.4); Absolute Monocytes 0.5 10^3/uL (0.1-0.6); Absolute Neutrophils 7.5 10^3/uL (1.4-6.5); Hematocrit 43.1 % (39.0-52.0); Hemoglobin 15.1 g/dL (13.0-18.0); Mean Corpuscular Hgb 31.4 pg (27.0-31.0); Mean Corpuscular Volume 89.6 fL (80.0-94.0); Mean Platelet Volume 9.4 fL (7.4-10.4); Nucleated Red Blood Cells % 0 % (-); Platelet Count 175 10^3/uL (130-400); Red Blood Cell Count 4.81 10^6/uL (4.70-6.10); Red Cell Dist. Width 13.6 % (11.5-14.5); White Blood Cell Count 8.8 10^3/uL (4.8-10.8)
[2024-06-29 17:55] VITALS: BP 146/66
[2024-06-29 19:31] VITALS: BP 138/76
[2024-06-29 19:33] VITALS: BP 149/73
[2024-06-29 20:01] VITALS: BP 123/53
[2024-06-29 20:24] VITALS: BP 155/73
[2024-06-29 20:41] LABS: Urine Albumin Trace (Neg - Trace); Urine Bilirubin Negative (Negative); Urine Character Clear (Clear); Urine Color Yellow; Urine Glucose Negative (Negative); Urine Ketone Negative (Negative); Urine Leukocyte Negative (Negative); Urine Nitrite Negative (Negative); Urine Occult Blood Negative (Negative); Urine Specific Gravity 1.015 (<1.030); Urine Urobilinogen Negative (Neg - 1+)
== END 2024-06-29 22:06 | disposition home or self-care (01) ==
LOC: EMR 15:07
PROVIDERS: Registered Nurse; EMERGENCY PHYSICIAN Emergency Medicine; FAMILY PHYSICIAN Internal Medicine
DX: B34.9 Viral infection, unspecified (principal); I48.91 Unspecified atrial fibrillation; I10 Essential (primary) hypertension; E78.00 Pure hypercholesterolemia, unspecified; F17.200 Nicotine dependence, unspecified, uncomplicated
CPT/HCPCS: 99283; 71046; 80053; 81003; 85025; 93005

== ENCOUNTER → 2024-09-10 11:59 | Outpatient (REF) | payer MEDICARE, OTHER, SELFPAY | LOC: HWRAD 11:59 | PROVIDERS: ATTENDING PHYSICIAN Internal Medicine Hematology & Oncology; FAMILY PHYSICIAN Internal Medicine | DX: C34.2 Malignant neoplasm of middle lobe, bronchus or lung (principal); N28.1 Cyst of kidney, acquired | CPT/HCPCS: 71250 ==

== ENCOUNTER → 2025-03-19 12:54 | Outpatient (REF) | payer MEDICARE, OTHER, SELFPAY ==
[2025-03-19 15:05] LABS: Blood Urea Nitrogen 17 mg/dl (9-20); Calcium 10.3 mg/dl (8.4-10.2); Carbon Dioxide 29 mmol/L (22-30); Chloride 100 mmol/L (98-107); Glucose 97 mg/dl (70-99); Potassium 3.8 mmol/L (3.5-5.1); Sodium 134 mmol/L (135-145); eGFR > 60.00
== END ==
LOC: REG 12:54
PROVIDERS: ATTENDING PHYSICIAN Internal Medicine Hematology & Oncology; FAMILY PHYSICIAN Internal Medicine
DX: C34.2 Malignant neoplasm of middle lobe, bronchus or lung (principal); N28.1 Cyst of kidney, acquired
CPT/HCPCS: 36415; 80048

== ENCOUNTER → 2025-03-22 12:05 | Outpatient (REF) | payer MEDICARE, OTHER, SELFPAY | LOC: RAD 12:05 | PROVIDERS: ATTENDING PHYSICIAN Internal Medicine Hematology & Oncology; FAMILY PHYSICIAN Internal Medicine | DX: C34.2 Malignant neoplasm of middle lobe, bronchus or lung (principal) | CPT/HCPCS: 71260; 74177; Q9967 ==

== ENCOUNTER → 2025-04-16 15:00 | Outpatient (REF) | payer MEDICARE, OTHER, SELFPAY | LOC: RAD 15:00 | PROVIDERS: ATTENDING PHYSICIAN Internal Medicine Endocrinology, Diabetes & Metabolism; FAMILY PHYSICIAN Internal Medicine | DX: E04.1 Nontoxic single thyroid nodule (principal) | CPT/HCPCS: 76536 ==

== ENCOUNTER → 2025-05-09 13:02 | Outpatient (REF) | payer MEDICARE, OTHER, SELFPAY ==
[2025-05-09 13:49] LABS: Hematocrit 45.1 % (39.0-52.0); Hemoglobin 15.1 g/dL (13.0-18.0); Mean Corp Hgb Conc. 33.5 g/dL (33.0-37.0); Mean Corpuscular Volume 92.8 fL (80.0-94.0); Nucleated Red Blood Cells % 0 % (-); Platelet Count 187 10^3/uL (130-400); Red Cell Dist. Width 13.3 % (11.5-14.5)
[2025-05-09 14:08] LABS: Urine Character Clear (Clear)
[2025-05-09 14:12] LABS: ALT (SGPT) 37 U/L (0-50); AST (SGOT) 33 U/L (17-59); Albumin 4.7 g/dl (3.5-5.0); Alkaline Phosphatase 64 U/L (38-126); Blood Urea Nitrogen 18 mg/dl (9-20); Calcium 10.0 mg/dl (8.4-10.2); Carbon Dioxide 27 mmol/L (22-30); Chloride 99 mmol/L (98-107); Glucose 100 mg/dl (70-99); HDL Cholesterol 55 mg/dl; LDL Cholesterol, Calculated 87 mg/dl; Potassium 4.0 mmol/L (3.5-5.1); Sodium 135 mmol/L (135-145); Total Protein 7.6 g/dl (6.3-8.2); Very Low Density Lipoprotein 41 mg/dl (0-30); eGFR > 60.00
== END ==
LOC: REG 13:02
PROVIDERS: ATTENDING PHYSICIAN Internal Medicine
DX: I10 Essential (primary) hypertension (principal); C34.90 Malignant neoplasm of unspecified part of unspecified bronchus or lung; E78.5 Hyperlipidemia, unspecified
CPT/HCPCS: 36415; 80053; 80061; 81003; 85025

== ENCOUNTER → 2025-05-22 12:34 | Outpatient (REF) | payer MEDICARE, OTHER, SELFPAY ==
[2025-05-22 12:48] VITALS: BP 147/77; BP_SYST 57
== END ==
LOC: RADI 12:34
PROVIDERS: ATTENDING PHYSICIAN Internal Medicine Endocrinology, Diabetes & Metabolism; FAMILY PHYSICIAN Internal Medicine
DX: E04.1 Nontoxic single thyroid nodule (principal)
CPT/HCPCS: 10005; 76942; 88173

== ENCOUNTER → 2025-06-10 13:47 | Outpatient (REF) | payer MEDICARE, OTHER, SELFPAY | LOC: RCS 13:47 | PROVIDERS: ATTENDING PHYSICIAN Internal Medicine; FAMILY PHYSICIAN Internal Medicine | DX: I44.7 Left bundle-branch block, unspecified (principal); I35.1 Nonrheumatic aortic (valve) insufficiency; I44.0 Atrioventricular block, first degree | CPT/HCPCS: 93306 ==